=== PATIENT | female | born 1950 | race Caucasian/White ===

== ENCOUNTER 2023-06-24 07:21 | Day surgery (SDC) | payer MEDICARE, BC ==
[2023-06-20 11:43] VITALS: BMI 26.4
[~2023-06-24 07:21] MED LIST: Bupivacaine PF 0.5% 30 ML VIAL ONE; EPINEPHrine 1 MG/ML VIAL ONE
[2023-06-24] MEDS ORDERED: fentaNYL 50 mcg/mL 1 mL Vial ONE (11:09)
[2023-06-24] MEDS ORDERED: Dexamethasone 4 mg/ml Vial ONE (11:11)
[2023-06-24] MEDS ORDERED: Lidocaine 2% PF 5 ML VIAL ONE (11:11)
[2023-06-24] MEDS ORDERED: Ondansetron PF 4 MG/2 ML Vial ONE (11:11)
[2023-06-24] MEDS ORDERED: CEFAZOLIN 2 GM VIAL ONE (11:38)
[2023-06-24] MEDS ORDERED: ePHEDrine Sulfate 50 MG/10 ML VIAL ONE (11:55)
[2023-06-24] MEDS ORDERED: PHENYLEPHRINE-NS 100 MCG/ML 10 ML SYRINGE ONE (12:09)
[2023-06-24] MEDS ORDERED: traMADol HCl 50 MG TAB PO PRN (12:16)
[2023-06-24] MEDS ORDERED: Acetaminophen 325 MG TAB PO PRN (12:16)
== END 2023-06-24 13:30 | disposition home or self-care (01) ==
LOC: CSHSDC 07:21
PROVIDERS: ATTEND Surgery
PROC: 0JH60WZ Insertion of Totally Implantable Vascular Access Device into Chest Subcutaneous Tissue and Fascia, Open Approach (ICD-10-PCS; principal; 2023-06-24)
DX: C56.1 Malignant neoplasm of right ovary (principal); I48.0 Paroxysmal atrial fibrillation
CPT/HCPCS: 36561; 71045; J0171; J3010; C1788; J1100; J1642; J2001; J2405; S0020

== ENCOUNTER 2024-01-14 09:48 | Outpatient (CLI) | payer MEDICARE, BC | END 2024-01-14 09:49 | disposition home or self-care (01) | LOC: CSHWCC 09:48 | PROVIDERS: ATTEND Nurse Practitioner Family | DX: Z43.3 Encounter for attention to colostomy (principal); K94.09 Other complications of colostomy; C56.9 Malignant neoplasm of unspecified ovary | CPT/HCPCS: 97597; G0463; 99213 ==

== ENCOUNTER 2024-01-28 16:24 | Outpatient (CLI) | payer MEDICARE, BC | END 2024-01-28 16:25 | disposition home or self-care (01) | LOC: CSHWCC 16:24 | PROVIDERS: ATTEND Nurse Practitioner Family | DX: K94.09 Other complications of colostomy (principal); C56.9 Malignant neoplasm of unspecified ovary | CPT/HCPCS: 11042; 87070; 87076; 87205; 99212; G0463 ==

== ENCOUNTER 2024-02-18 14:14 | Outpatient (CLI) | payer MEDICARE, BC | END 2024-02-18 14:15 | disposition home or self-care (01) | LOC: CSHWCC 14:14 | PROVIDERS: ATTEND Nurse Practitioner Family | DX: C56.9 Malignant neoplasm of unspecified ovary (principal); K94.09 Other complications of colostomy | CPT/HCPCS: 11042 ==

== ENCOUNTER 2025-05-16 15:21 | Outpatient (CLI) | payer MEDICARE, BC | END 2025-05-16 15:22 | disposition home or self-care (01) | LOC: CSHCP 15:21 | PROVIDERS: ATTEND Internal Medicine | DX: J96.11 Chronic respiratory failure with hypoxia (principal); J84.9 Interstitial pulmonary disease, unspecified; J98.4 Other disorders of lung | CPT/HCPCS: 94010; 94726; 94729; 94760 ==